=== PATIENT | male | born 1980 | race Two or more races ===

== ENCOUNTER 2018-11-06 15:04 | Emergency (ER) | payer OTHER ==
[~2018-11-06] VITALS: Ht 160 cm; Wt 78.5 kg
[2018-11-06 17:00] VITALS: BP 122/89
== END 2018-11-06 17:56 | disposition home or self-care (01) ==
LOC: ER 15:06
DX: T17.298A Other foreign object in pharynx causing other injury, initial encounter (principal); X58.XXXA Exposure to other specified factors, initial encounter; Y93.89 Activity, other specified; Y99.8 Other external cause status; Y92.89 Other specified places as the place of occurrence of the external cause
CPT/HCPCS: 70490